=== PATIENT | female | born 1960 | race Two or more races ===

== ENCOUNTER 2018-04-10 09:21 | Outpatient (CLI) | payer OTHER | END 2018-04-10 15:36 | disposition home or self-care (01) | LOC: MAMO-SONO 09:21 | DX: Z12.31 Encounter for screening mammogram for malignant neoplasm of breast (principal); Z12.39 Encounter for other screening for malignant neoplasm of breast; E11.9 Type 2 diabetes mellitus without complications ==

== ENCOUNTER 2019-12-09 08:42 | Outpatient (CLI) | payer OTHER | END 2019-12-09 08:45 | disposition home or self-care (01) | LOC: MAMO-SONO 08:42 | DX: Z12.31 Encounter for screening mammogram for malignant neoplasm of breast (principal); Z87.898 Personal history of other specified conditions; M25.512 Pain in left shoulder; M54.2 Cervicalgia; M62.830 Muscle spasm of back; E11.9 Type 2 diabetes mellitus without complications; Z12.39 Encounter for other screening for malignant neoplasm of breast ==

== ENCOUNTER 2020-04-05 08:57 | Outpatient (CLI) | payer OTHER | END 2020-04-05 09:11 | disposition home or self-care (01) | LOC: RAD 08:57 | PROVIDERS: ATTEND Orthopaedic Surgery | DX: R07.89 Other chest pain (principal) ==

== ENCOUNTER 2021-03-31 09:17 | Outpatient (CLI) | payer OTHER | END 2021-03-31 09:37 | disposition home or self-care (01) | LOC: MAMO-SONO 09:17 | DX: R10.2 Pelvic and perineal pain (principal); N60.11 Diffuse cystic mastopathy of right breast; N60.12 Diffuse cystic mastopathy of left breast; N60.19 Diffuse cystic mastopathy of unspecified breast ==

== ENCOUNTER 2021-08-04 10:50 | Outpatient (CLI) | payer OTHER | END 2021-08-04 10:56 | disposition home or self-care (01) | LOC: RAD 10:50 | PROVIDERS: ATTEND Specialist | DX: M77.32 Calcaneal spur, left foot (principal) ==

== ENCOUNTER → 2021-12-02 | Outpatient (CLI) | payer OTHER | END | disposition home or self-care (01) | LOC: SONOGRAMA 13:43 | PROVIDERS: ATTEND Obstetrics & Gynecology | DX: R10.2 Pelvic and perineal pain (principal); D25.9 Leiomyoma of uterus, unspecified; N95.0 Postmenopausal bleeding ==

== ENCOUNTER 2021-12-19 07:08 | Outpatient (CLI) | payer OTHER | END 2021-12-19 07:11 | disposition home or self-care (01) | LOC: MRI 07:08 | PROVIDERS: ATTEND Obstetrics & Gynecology | DX: D25.9 Leiomyoma of uterus, unspecified (principal); R10.2 Pelvic and perineal pain | CPT/HCPCS: 72197 ==

== ENCOUNTER 2022-02-01 07:58 | Outpatient (CLI) | payer OTHER | END 2022-02-01 08:08 | disposition home or self-care (01) | LOC: SONOGRAMA 07:58 | PROVIDERS: ATTEND Specialist | DX: N28.0 Ischemia and infarction of kidney (principal) ==

== ENCOUNTER 2023-08-03 10:07 | Outpatient (CLI) | payer OTHER | END 2023-08-03 10:20 | disposition home or self-care (01) | LOC: SONOGRAMA 10:07 | PROVIDERS: ATTEND Obstetrics & Gynecology | DX: Z78.0 Asymptomatic menopausal state (principal) ==

== ENCOUNTER 2024-07-28 08:32 | Outpatient (CLI) | payer OTHER | END 2024-07-28 08:41 | disposition home or self-care (01) | LOC: MAMO-SONO 08:32 | PROVIDERS: ATTEND Preventive Medicine Public Health & General Preventive Medicine | DX: D63.0 Anemia in neoplastic disease (principal); N64.4 Mastodynia; D76.1 Hemophagocytic lymphohistiocytosis; Z12.31 Encounter for screening mammogram for malignant neoplasm of breast ==

== ENCOUNTER 2024-10-17 12:04 | Outpatient (CLI) | payer OTHER | END 2024-10-17 12:18 | disposition home or self-care (01) | LOC: SONOGRAMA 12:04 | PROVIDERS: ATTEND Surgery | DX: D24.1 Benign neoplasm of right breast (principal); N60.11 Diffuse cystic mastopathy of right breast; D48.61 Neoplasm of uncertain behavior of right breast ==